=== PATIENT | male | born 2000 | race Caucasian/White ===

== ENCOUNTER 2024-09-12 10:00 | Emergency (ER) | payer OTHER ==
[~2024-09-12] VITALS: Ht 175.3 cm; Wt 73.8 kg
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
[2024-09-12 12:01] VITALS: BP 139/80; PULSE 105; RESP 16; TEMP 99; O2SAT 99
== END 2024-09-12 12:03 ==
LOC: EDBD 10:01 → ER 10:01
DX: S01.112A Laceration without foreign body of left eyelid and periocular area, initial encounter (principal); F17.200 Nicotine dependence, unspecified, uncomplicated; W18.39XA Other fall on same level, initial encounter; Y93.89 Activity, other specified; Y92.89 Other specified places as the place of occurrence of the external cause; Y99.8 Other external cause status
CPT/HCPCS: 70450; 70486; 73090; 99284; J7030; A6449